=== PATIENT | female | born 1975 | race Caucasian/White ===

== ENCOUNTER 2021-02-07 20:18 | Emergency (ER) | payer OTHER ==
[~2021-02-07] VITALS: Ht 175.3 cm; Wt 158.8 kg
[2021-02-07 20:45] VITALS: BP 171/91
[2021-02-07] MEDS ORDERED: LISINOPRIL10 MG PO (21:10)
[2021-02-07] MEDS ORDERED: LIPITOR 20 MG T20 M1 PO (21:12)
[2021-02-07] MEDS ORDERED: CLONAZEPAM 0.50.5 M1 PO (21:12)
[2021-02-07] MEDS ORDERED: LEVO-T25 MCG PO (21:12)
[2021-02-07] MEDS ORDERED: HYDROCODONE-AP1 EACH PO (21:13)
[2021-02-07] MEDS ORDERED: DRIZALMA SPRINK40 MG PO (21:13)
[2021-02-07] MEDS ORDERED: ASA81BEC PO (21:13)
[2021-02-07] MEDS ORDERED: SUPER THERAVIT1 EACH PO (21:14)
[2021-02-07] MEDS ORDERED: [UNRECOGNIZED DRUG - REMARK] (21:14)
[2021-02-07] MEDS ORDERED: MOBIC7.5 MG PO (22:17)
== END 2021-02-07 22:38 | disposition home or self-care (01) ==
LOC: M.ERS 20:18
DX: R51.9 Headache, unspecified (principal); M54.2 Cervicalgia; I10 Essential (primary) hypertension; E78.00 Pure hypercholesterolemia, unspecified; E03.9 Hypothyroidism, unspecified; Z79.899 Other long term (current) drug therapy; V49.9XXA Car occupant (driver) (passenger) injured in unspecified traffic accident, initial encounter; Y93.I9 Activity, other involving external motion; Y92.89 Other specified places as the place of occurrence of the external cause; Y99.8 Other external cause status